=== PATIENT | female | born 1990 | race Caucasian/White ===

== ENCOUNTER 2017-05-08 16:09 | Emergency (ER) | payer MEDICAID ==
[2017-05-08 16:22] VITALS: BP 140/85
--- NOTE | 2017-05-08 16:58 | ED Physician Documentation ---
History of Present Illness - Stated complaint Stated Complaint: RT TOE PX - Chief complaint Chief Complaint: Ext Problem - History obtained from History obtained from: Patient - History of Present Illness Timing: How many days ago (3) Pain level max: 5 Pain level now: 3 - Additonal information Additional information: R 1st MTP joint pain. Worse with walking and better with rest. Redness and swelling present Review of Systems Constitutional: denies: Fever, Chills GI: denies: Vomiting : denies: Dysuria, Frequency, Hesitancy, Now EGA Skin: denies: Rash Musculoskeletal: denies: Neck pain, Back pain Neurologic: denies: Headache PD PAST MEDICAL HISTORY - Past Medical History Past Medical History: No - Past Surgical History Past Surgical History: No - Present Medications Home Medications: Ambulatory Orders Medication Instructions Recorded Confirmed Indomethacin 50 mg PO Q8H PRN #20 capsule 05/08/17 - Allergies Allergies/Adverse Reactions: Allergies Allergy/AdvReac Type Severity Reaction Status Date / Time No Known Drug Allergies Allergy Verified 05/08/17 16:21 - Social History Does the pt smoke?: Yes Smoking Status: Current every day smoker Does the pt drink ETOH?: Yes Does the pt have substance abuse?: No - Immunizations Immunizations are current?: No PD ED PE NORMAL - Vitals Vital signs reviewed: Yes - General General: Alert and oriented X 3, No acute distress - HEENT HEENT: Moist mucous membranes - Neck Neck: Supple, no meningeal sign - Derm Derm: Warm and dry - Extremities Extremities: Other (R 1st MTP - Mild erythema and swelling to the right first MTP. There is pain with range of motion and with ambulation.) - Neuro Neuro: Alert and oriented X 3 - Psych Psych: Normal mood, Normal affect Results - Vitals Vitals: Vital Signs - 24 hr 05/08/17 16:20 Temperature 36.9 C Heart Rate 78 Respiratory 16 Rate Blood Pressure 140/85 H O2 Saturation 99 Oxygen O2 Source Room air PD MEDICAL DECISION MAKING - ED course Complexity details: considered differential, d/w patient ED course: Patient presents to the emergency department with what appears to be gout of the right first metatarsal phalangeal joint. Given colchicine here. Will place on indomethacin for home. No evidence of infection. Does not appear consistent with septic joint. Patient is not . Patient counseled regarding signs and symptoms for which I believe and urgent re-evaluation would be necessary. Patient with good understanding of and agreement to plan and is comfortable going home at this time This document was made in part using voice recognition software. While efforts are made to proofread this document, sound alike and grammatical errors may occur. Departure - Departure Disposition: 01 Home, Self Care Clinical Impression: Gout Qualifiers: Gout site: toe Gout etiology: unspecified cause Chronicity: acute Laterality: right Qualified Code(s): M10.9 - Gout, unspecified Condition: Good Instructions: ED Diet Gout Follow-Up: your,doctor in 1 week [Other] Prescriptions: Indomethacin 50 mg PO Q8H PRN #20 capsule PRN Reason: foot pain Comments: Wear the postoperative shoe as needed for comfort. Use the indomethacin for pain. Return if you worsen. Forms: Activity restrictions Discharge Date/Time: 05/08/17 17:28
[2017-05-08] MEDS ORDERED: COLCHICINE 0.6 MG TABLET PO STA (17:08)
== END 2017-05-08 17:28 | disposition home or self-care (01) ==
LOC: ED 16:09
DX: M10.9 Gout, unspecified (principal); F17.200 Nicotine dependence, unspecified, uncomplicated
CPT/HCPCS: 99283; A9270

== ENCOUNTER 2018-09-16 08:20 | Emergency (ER) | payer MEDICAID ==
[2018-09-16 08:27] VITALS: BP 146/97
[2018-09-16] MEDS ORDERED: PENICILLIN VK 250 MG TABLET PO STA (08:59)
[2018-09-16] MEDS ORDERED: DEXAMETHASONE 10 MG/ML VIAL PO STA (08:59)
[2018-09-16] MEDS ORDERED: CHERRY SYRUP 10 ML UDC PO ONE (08:59)
--- NOTE | 2018-09-16 09:02 | ED Physician Documentation ---
PD HPI HEENT - Stated complaint Stated Complaint: SORE THROAT - Chief complaint Chief Complaint: Heent - History obtained from History obtained from: Patient - History of Present Illness Timing - onset: How many days ago (several) Timing - details: Gradual onset Location: Throat Worsens: Swalllowing Associated symptoms: Fever, Swollen nodes, Cough Similar symptoms before: Has not had sx before - Additional information Additional information: The patient is a 27-year-old female reports sore throat that has been gradually getting worse over the past several days. Pain is worse with swallowing. She has noticed swelling of her cervical lymph nodes, and pain in her left ear. She also reports intermittent fever and nonproductive cough. She denies history of similar symptoms in the past. Review of Systems Constitutional: reports: Fever Eyes: denies: Irritation Ears: reports: Ear pain (left) Nose: denies: Congestion Throat: reports: Sore throat Cardiac: denies: Chest pain / pressure Respiratory: reports: Cough. denies: Dyspnea GI: denies: Abdominal Pain, Nausea, Vomiting Skin: denies: Rash Musculoskeletal: denies: Back pain Neurologic: denies: Headache PD PAST MEDICAL HISTORY - Past Medical History Endocrine/Autoimmune: None - Past Surgical History Past Surgical History: No - Present Medications Home Medications: Ambulatory Orders Medication Instructions Recorded Confirmed Penicillin V Potassium 500 mg PO Q6HR #40 tablet 09/16/18 - Allergies Allergies/Adverse Reactions: Allergies Allergy/AdvReac Type Severity Reaction Status Date / Time No Known Drug Allergies Allergy Verified 09/16/18 08:27 - Social History Does the pt smoke?: Yes Smoking Status: Current every day smoker Does the pt drink ETOH?: Yes Does the pt have substance abuse?: No - Immunizations Immunizations are current?: No PD ED PE NORMAL - Vitals Vital signs reviewed: Yes (hypertensive initially.) - HEENT HEENT: Atraumatic, EOMI, Ears normal, Other (Oropharynx is erythematous with enlarged tonsils bilaterally.) - Neck Neck: Supple, no meningeal sign, Other (Enlarged anterior cervical nodes bilaterally, more on the left than the right.) - Cardiac Cardiac: RRR - Respiratory Respiratory: No respiratory distress, Clear bilaterally - Abdomen Abdomen: Soft, Non tender - Back Back: No CVA TTP - Derm Derm: No rash - Extremities Extremities: No edema, No calf tenderness / cord - Neuro Neuro: Alert and oriented X 3, No motor deficit, Normal speech Results - Vitals Vitals: Vital Signs - 24 hr 09/16/18 08:23 Temperature 37 C Heart Rate 84 Respiratory 18 Rate Blood Pressure 146/97 H O2 Saturation 96 Oxygen O2 Source Room air - Labs Labs: Laboratory Tests 09/16/18 08:28 Group A Strep Rapid POSITIVE H PD MEDICAL DECISION MAKING - ED course Complexity details: reviewed results, re-evaluated patient, considered di fferential, d/w patient ED course: The patient's presentation is most consistent with acute strep pharyngitis, confirmed with rapid strep screen. Her presentation does not suggest peritonsillar abscess. Treatment in the emergency department included administration of penicillin 500 mg orally and dexamethasone 10 mg orally. I discussed with her the expected course of illness, antibiotic treatment and outpatient follow-up, as well as potentially worrisome signs or symptoms that should prompt reevaluation in the emergency department. Departure - Departure Disposition: 01 Home, Self Care Clinical Impression: Acute streptococcal pharyngitis Condition: Stable Instructions: ED Strep Pharyngitis Conf Prescriptions: Penicillin V Potassium 500 mg PO Q6HR #40 tablet Comments: Gargle with cool liquids. Take penicillin 4 times daily as prescribed. You can use ibuprofen, up to 800 mg 3 times daily for its anti-inflammatory effect. Follow-up with primary physician within 1 to 2 weeks. Call to schedule an appointment. Return to the emergency department if you develop increasing difficulty swallowing, or otherwise worsening times. Forms: Activity restrictions
== END 2018-09-16 09:14 | disposition home or self-care (01) ==
LOC: ED 08:20
DX: J02.0 Streptococcal pharyngitis (principal); F17.200 Nicotine dependence, unspecified, uncomplicated
CPT/HCPCS: 87430; 99283; 99284; A9270